=== PATIENT | female | born 1975 | race Caucasian/White ===

== ENCOUNTER → 2025-01-06 12:26 | Outpatient (CLI) | payer OTHER, SELFPAY ==
--- NOTE | 2025-01-06 13:20 | DI.RAD.S_ITS ---
PROCEDURE: XR FOOT LT MIN 3V INDICATIONS: LT FOOT PAIN TECHNIQUE: 3 views of the foot were acquired. COMPARISON: None. FINDINGS: Bones: There are no osseous abnormalities Joints: Mild degeneration 1st MTP and 2nd through 5th interphalangeal joints. Soft tissues: No soft tissue abnormality. IMPRESSION: Mild degeneration Dictated by: Kings Patel M.D. on 01/07/2025 at 11:49 Approved by: Kings Patel M.D. on 01/07/2025 at 11:49
== END ==
PROVIDERS: PCP Family Medicine; Referring Provider Podiatrist Foot & Ankle Surgery; Visit Provider Podiatrist Foot & Ankle Surgery
DX: M19.072 Primary osteoarthritis, left ankle and foot (principal); M79.672 Pain in left foot
CPT/HCPCS: 73630